=== PATIENT | male | born 1990 | race Hispanic/Latino ===

== ENCOUNTER 2017-12-29 20:51 | Emergency (ER) | payer BC ==
[~2017-12-29] VITALS: Ht 157.5 cm; Wt 49.9 kg
[~2017-12-29 20:51] MED LIST: AMPICILLIN; AUGMENTIN; BENADRYL; BENTYL10 MG PO; DEPO-MEDROL; FLAGYL250 MG PO; LEVAQUIN500 MG PO; LINZESS PO; NO MEDS; NYQUIL D COLD177 ML; PANTOPRAZOLE SO40 MG PO; Z.0.NORCO 5-325 TA1; Z.0.PHENERGAN25 M1
== END 2017-12-29 21:27 | disposition home or self-care (01) ==
LOC: FSED 20:51
DX: S90.862A Insect bite (nonvenomous), left foot, initial encounter (principal)
CPT/HCPCS: 99283

== ENCOUNTER 2018-08-03 20:35 | Emergency (ER) | payer SELFPAY ==
[~2018-08-03] VITALS: Ht 157.5 cm; Wt 52.2 kg
[2018-08-03] MEDS ORDERED: KETOROLAC TROMETHAMINE 60 MG/2 ML VIAL IM ONE (21:00)
== END 2018-08-03 21:28 | disposition home or self-care (01) ==
LOC: FSED 20:35
DX: R50.9 Fever, unspecified (principal); R05 Cough; J20.9 Acute bronchitis, unspecified
CPT/HCPCS: 99283; J1885

== ENCOUNTER 2018-10-15 12:01 | Emergency (ER) | payer SELFPAY ==
[~2018-10-15] VITALS: Ht 157.5 cm; Wt 52.2 kg
[2018-10-15] MEDS ORDERED: ONDANSETRON HCL INJ 2MG/ML 2ML 2 MG/ML VIAL IV STA (12:29)
[2018-10-15] MEDS ORDERED: SODIUM CHLORIDE 0.9% 1000ML 1,000 ML IV SCH (12:30)
[2018-10-15] MEDS ORDERED: IOPAMIDOL 370 MG/ML 50ML INFUS..BTL INJ ONE (14:30)
--- NOTE | 2018-10-15 14:43 | Diagnostic Imaging Report ---
EXAM: CT of the abdomen and pelvis WITH contrast HISTORY: Vomiting, diarrhea COMPARISON: None available. TECHNIQUE: The abdomen and pelvis were scanned utilizing a multidetector helical scanner. Coronal and sagittal reformats are provided. PROTOCOL: Routine IV CONTRAST: 100 cc of Isovue-300. ORAL CONTRAST: Dilute Gastrografin RADIATION DOSE: Total DLP: 258.27 mGy*cm Estimated effective dose: (DLP x 0.015 x size factor) Dose modulation, iterative reconstruction, and/or weight based adjustment of the mA/kV was utilized to reduce the radiation dose to as low as reasonably achievable. COMPLICATIONS: None FINDINGS: LOWER THORAX: Unremarkable. HEPATOBILIARY: No mass. No biliary dilation. Metallic clips in the right upper quadrant of the abdomen are compatible with prior cholecystectomy. SPLEEN: No splenomegaly. PANCREAS: No focal masses or ductal dilatation. ADRENALS: No discrete adrenal nodule. KIDNEYS/URETERS: No hydronephrosis, stones, or definite solid mass lesions. PELVIC ORGANS/BLADDER: The urinary bladder is partially decompressed, the wall appears diffusely thickened, but is accentuated by the decompression. GI TRACT: No dilation or wall thickening identified. The appendix is normal. PERITONEUM / RETROPERITONEUM: No free air or fluid. LYMPH NODES: No pathologically enlarged lymph node. Small nonspecific mesenteric lymph nodes, most notably in the right lower quadrant. VESSELS: Unremarkable. BONES: No aggressive osseous lesion or acute fracture. SOFT TISSUES: Unremarkable. IMPRESSION: 1. Nonspecific, nonenlarged, mesenteric lymph nodes, most likely secondary to an evolving infectious or inflammatory process. 2. Otherwise, unremarkable CT of the abdomen and pelvis. Signed by: Dr. Huan Graham D.O., M.M.M. on 10/15/2018 2:40 PM
== END 2018-10-15 15:59 | disposition home or self-care (01) ==
LOC: FSED 12:01
DX: R10.30 Lower abdominal pain, unspecified (principal); Z88.0 Allergy status to penicillin; R11.2 Nausea with vomiting, unspecified; R19.7 Diarrhea, unspecified
CPT/HCPCS: 74177; 80053; 81003; 85025; 99284; J2405; Q9967

== ENCOUNTER 2020-01-16 18:39 | Emergency (ER) | payer BC ==
[~2020-01-16] VITALS: Ht 157.5 cm; Wt 52.2 kg
--- NOTE | 2020-01-16 20:44 | Emergency Department Note ---
History of Present Illnes History of Present Illness Chief Complaint: COVID PUI History of Present Illness This is a 29 year old male arrives with complaints of cough fever, admits recent Covid 19 exposure at work. Patient admits to a exposure. On Friday was tested on Friday but was told the results are negative. Patient states he was asymptomatic when he was tested. Patient is requesting a repeat Covid tests emergency department today, patient states he is getting pressure from his employer to return back to work. Patient denies any shortness of breath, patient is accompanied by his in the emergency department and both concerns about the seventh month old child. Historian: Patient Arrival Mode: Car Onset (how long ago): day(s) Severity: mild Onset quality: gradual Duration (how long): day(s) Timing of current episode: constant, intermittent Progression: waxing and waning Chronicity: new Context: Reports other (covid- 19) Past Medical/Family History Physician Review I have reviewed the patient's past medical and family history. Any updates have been documented here. Past Medical History Recent Fever: No Clinical Suspicion of Infectio: No New/Unexplained Change in Ment: No Past Medical History: None Past Surgical History: Hernia Repair Other Surgery: hernia repair retinal repair Social History Smoking Cessation: Never Smoker Alcohol Use: Occasional Any Illegal Drug Use: No TB Exposure/Symptoms: No Physically hurt or threatened: No Other Last Tetanus: utd Any Pre-Existing Lines (PICC,: No Is patient up to date on immun: Yes Last Flu: DENIES Last Pneumovax: DENIES Review of Systems Review of Systems Constitutional: Reports as per HPI, Reports chills, Reports fever EENTM: Reports no symptoms Cardiovascular: Reports no symptoms Respiratory: Reports no symptoms, Reports cough Gastrointestinal: Reports no symptoms Genitourinary: Reports no symptoms Musculoskeletal: Reports no symptoms Integumentary: Reports no symptoms Neurological: Reports no symptoms Psychological: Reports no symptoms Endocrine: Reports no symptoms Hematological/Lymphatic: Reports no symptoms Physical Exam Related Data Allergies: Coded Allergies: Penicillins (Verified Allergy, Unknown, HIVES, 12/29/17) Triage Vital Signs Vital Signs Date Time Temp Pulse Resp B/P (MAP) Pulse Ox O2 Delivery O2 Flow Rate FiO2 01/16/20 18:45 98.9 70 14 118/82 98 Vital signs reviewed: Yes Physical Exam CONSTITUTIONAL Constitutional: Present well-developed, Present well-nourished HENT HENT: Present normocephalic, Present atraumatic, Present oropharynx clear/moist, Present nose normal HENT L/R: Present left ext ear normal, Present right ext ear normal EYES Eyes: Reports PERRL, Reports conjunctivae normal NECK Neck: Present ROM normal PULMONARY Pulmonary: Present effort normal, Present breath sounds normal CARDIOVASCULAR Cardiovascular: Present regular rhythm, Present heart sounds normal, Present capillary refill normal, Present normal rate GASTROINTESTINAL Abdominal: Present soft, Present nontender, Present bowel sounds normal GENITOURINARY Genitourinary: Present exam deferred SKIN Skin: Present warm, Present dry MUSCULOSKELETAL Musculoskeletal: Present ROM normal NEUROLOGICAL Neurological: Present alert, Present oriented x 3, Present no gross motor or sensory deficits PSYCHOLOGICAL Psychological: Present mood/affect normal, Present judgement normal Assessment & Plan Medical Decision Making MDM 47-year-old well-appearing male arrives to the ED with complaints of cough fever loss of taste and smell. Patient is clinically presenting with signs and symptoms consistent with Covd 19. Patient informed he is positive until proven otherwise. Patient's oxygen saturation remained 99% even on exertion, no evidence of tachypnea or dyspnea noted in the ED. Spoke present length about the importance of sleeping on his stomach and rotating from side to side. Z-Liam given, signs and symptoms for return discussed. In the light of the Covid pandemic, disaster medicine care was given- patient understands why he was not object for Covid, no indications for a chest x-ray at this time given normal oxygen saturation and respiratory status. Encouraged outpt covid 19 testing Assessment & Plan Final Impression: (1) COVID-19 Depart Disposition: HOME, SELF-CARE Last Vital Signs Date Time Temp Pulse Resp B/P (MAP) Pulse Ox O2 Delivery O2 Flow Rate FiO2 01/16/20 19:28 100 01/16/20 18:45 98.9 70 14 118/82 Home Meds Reported Medications [Linzess] No Conflict Check, 145 MCG PO ACB 07/30/15 Dicyclomine Hcl (BENTYL) 10 Mg Capsule, 10 MG PO PRN, CAP 07/30/15 Pantoprazole Sodium* (PROTONIX) 40 Mg Tablet.dr, 40 MG PO ACB, TAB 07/30/15 SHAYY RAMIREZ, Jan 16, 2020 20:44
== END 2020-01-16 19:35 | disposition home or self-care (01) ==
LOC: ER 18:48
DX: U07.1 COVID-19 (principal); R11.2 Nausea with vomiting, unspecified; R51 Headache; R05 Cough
CPT/HCPCS: 99282